=== PATIENT | female | born 1960 | race Hispanic/Latino ===

== ENCOUNTER → 2018-05-27 | Outpatient (CLI) | payer MEDICARE | END | disposition home or self-care (01) | LOC: SHCH 15:39 | PROVIDERS: ATTEND Internal Medicine Cardiovascular Disease | DX: I51.7 Cardiomegaly (principal); I34.0 Nonrheumatic mitral (valve) insufficiency | CPT/HCPCS: 93306 ==

== ENCOUNTER → 2019-10-11 | Outpatient (CLI) | payer MEDICARE | END | disposition home or self-care (01) | LOC: SHCH 15:25 | PROVIDERS: ATTEND Internal Medicine Cardiovascular Disease | DX: I08.8 Other rheumatic multiple valve diseases (principal) | CPT/HCPCS: 93306 ==

== ENCOUNTER 2020-12-20 05:30 | Day surgery (SDC) | payer MEDICARE ==
[2020-12-18 11:51] LABS: EOSINOPHILS % (AUTO) 2.7 % (0.0-8.0); HEMATOCRIT 36.5 % (36-48); LYMPHOCYTES % (AUTO) 20.8 % (21.0-51.0); MEAN CORPUSCULAR HEMOGLOBIN 31.9 pg (27.0-33.0); MEAN CORPUSCULAR VOLUME 103.1 fL (79-99); MONOCYTES % (AUTO) 7.9 % (3.0-13.0); NEUTROPHILS % (AUTO) 67.1 % (40.0-77.0); PLATELET COUNT (AUTO) 229 K/uL (130-400); RED BLOOD CELL COUNT(AUTO) 3.54 MIL/uL (4.00-5.50); RED CELL DISTRIBUTION WIDTH 13.5 % (11.0-15.5); WHITE BLOOD COUNT (AUTO) 6.3 K/uL (4.8-10.8)
[2020-12-18 12:12] LABS: CREATININE 6.5 mg/dL (0.5-1.5)
[2020-12-18 12:13] LABS: PROTHROMBIN TIME 10.9 SEC (9.6-11.6)
[2020-12-18 12:14] LABS: PARTIAL THROMBOPLASTIN TIME 28.7 SEC (26.3-35.5)
[2020-12-18 12:33] LABS: POTASSIUM 6.2 mmol/L (3.5-5.1)
[2020-12-19 11:10] VITALS: BP 112/62
[2020-12-20] VITALS (16 sets, daily range): BP systolic 98–130; BP diastolic 52–71
[~2020-12-20] VITALS: Ht 154.9 cm; Wt 77.9 kg
[2020-12-20] MEDS ORDERED: 0.9% NACL 500ML IV.SOLN 500 ML IV SCH (06:00)
[2020-12-20] MEDS ORDERED: 0.9%NACL 1000ML 1,000 ML IV ONE (06:34)
[2020-12-20] MEDS ORDERED: ERGO2000 PO (06:40)
[2020-12-20] MEDS ORDERED: MELA10TA2 PO (06:40)
[2020-12-20] MEDS ORDERED: PREG50 PO (06:40)
[2020-12-20] MEDS ORDERED: SEVE800T7 PO (06:40)
[2020-12-20] MEDS ORDERED: PRAV40TA3 PO (06:40)
[2020-12-20] MEDS ORDERED: IOHEXOL 350 MG/ML 100ML INFUS..BTL IV ONE (07:14)
[2020-12-20] MEDS ORDERED: IOHEXOL-350 50ML VIAL IV ONE (07:14)
[2020-12-20] MEDS ORDERED: NITROGLYCERIN 2 MG VIAL IV ONE (07:14)
[2020-12-20] MEDS ORDERED: HEPARIN 10,000 UNIT/10ML (1,000 UNIT/ML) VIAL ONE (07:14)
[2020-12-20] MEDS ORDERED: LIDOCAINE HCL 400MG/20ML VIAL ONE ×2 (07:15→07:37)
[2020-12-20] MEDS ORDERED: MIDAZOLAM HCL 1 MG/ML 2ML VIAL ONE (07:28)
[2020-12-20] MEDS ORDERED: ATROPINE 1MG SYG IVP ONE (09:07)
== END 2020-12-20 15:05 | disposition home or self-care (01) ==
LOC: DAH 05:30 → DAHIP 08:23 → UNDOADMOB 08:23 → DAH 08:23 → EDSTATUS 10:30 → DAH 15:05
PROVIDERS: ATTEND Internal Medicine Cardiovascular Disease
DX: I34.0 Nonrheumatic mitral (valve) insufficiency (principal); I27.20 Pulmonary hypertension, unspecified; E78.5 Hyperlipidemia, unspecified; H54.8 Legal blindness, as defined in USA; I12.0 Hypertensive chronic kidney disease with stage 5 chronic kidney disease or end stage renal disease; N18.6 End stage renal disease; Z99.2 Dependence on renal dialysis; Z82.49 Family history of ischemic heart disease and other diseases of the circulatory system; Z83.3 Family history of diabetes mellitus; Z79.82 Long term (current) use of aspirin; Z79.01 Long term (current) use of anticoagulants; Z79.899 Other long term (current) drug therapy; Z90.49 Acquired absence of other specified parts of digestive tract; Z98.891 History of uterine scar from previous surgery; Z72.89 Other problems related to lifestyle; Z98.890 Other specified postprocedural states
CPT/HCPCS: 36415 ×2; 71045; 80048; 84132; 85025; 85610; 85730; 93005; 93460; A4215; A4216; A4221; A4222; A4223 ×3; A4606; A4663; C1769; C1894 ×2; J1644; J2250; J3490 ×3; J7030; Q9965; Q9967 ×2; 99156; 99157; J0461